=== PATIENT | male | born 2000 | race Caucasian/White ===

== ENCOUNTER 2024-01-01 01:38 | Emergency (ER) | payer OTHER, SELFPAY ==
--- NOTE | ~2024-01-01 | XR_ITS ---
Portable chest x-ray Comparison: None Clinical History: Chest pain Findings: Lungs are clear, without focal consolidation or pleural effusion. Cardiomediastinal silho uette is unremarkable. Bones and soft tissues are unremarkable. Impression: Normal chest. Reviewed, dictated and finalized at location M. Impression: Normal chest.
[2024-01-01 02:07] VITALS: BP 126/69; PULSE 72; RESP 15; TEMP 36.4; O2SAT 99
--- NOTE | 2024-01-01 02:50 | ECG_ITS ---
SEE SCANNED COPY FOR CONFIRMED REPORT MTDD
--- NOTE | 2024-01-01 03:24 | ED.GENADULT ---
HPI - General Adult General Chief complaint: Unspecified Stated complaint: palpitations, dilated pupils Time Seen by Provider: 01/01/24 02:31 History of Present Illness HPI narrative: 23-year-old male presenting with palpitations. Patient says he has been smoking a very strong strain of marijuana. After he smoked it he started to have palpitations and felt like his pupils were dilated. He has had poor reactions marijuana in the past but never like this. He then called his father was brought to emergency room for re-evaluation. At this time patient's symptoms at ribs resolved and he just feels tired. Related Data Allergies Allergy/AdvReac Type Severity Reaction Status Date / Time No Known Allergies Allergy Verified 01/01/24 02:11 [facility] Past Medical History Medical History Marijuana abuse Exam Narrative: APPEARANCE: Patient smells of marijuana, he is wearing a [place] hoodie Head: atraumatic. EYES: EOMI, conjunctival injection NOSE: Atraumatic NECK: Trachea midline RESPIRATORY: No increased rate of breathing CTAB CARDIOVASCULAR: RRR, ABDOMINAL: Non-distended MUSCULOSKELETAl: No obvious deformities NEURO: Alert. Moving 4/4 extremities SKIN:: Warm, dry. Normal color PSYCHIATRIC: anxious Course Vital Signs Vital signs: Vital Signs Temperature 97.6 F 01/01/24 02:07 Pulse Rate 72 01/01/24 02:07 Respiratory Rate 15 01/01/24 02:07 Blood Pressure 126/69 01/01/24 02:07 Pulse Oximetry 99 01/01/24 02:07 Oxygen Delivery Room Air 01/01/24 02:07 Temperature 97.6 F 01/01/24 02:07 Pulse Rate 72 01/01/24 02:07 Respiratory Rate 15 01/01/24 02:07 Blood Pressure 126/69 01/01/24 02:07 Pulse Oximetry 99 01/01/24 02:07 Oxygen Delivery Room Air 01/01/24 02:07 Medical Decision Making [facility] Narrative Medical decision making narrative: -Course: 23-year-old male presenting with palpitations and anxiety after a large dose of marijuana. Chest x-ray and EKG unremarkable. Patient instructed to stop using marijuana. Discharge with primary care follow-up return precautions. -DDX includes but is not limited to:. Substance use disorder, anxiety, cardiac dysrhythmia -Co-morbidities complicating care: daily marijuana use -Social determinants of health: works at [employer], uses large amount of marijuana -Independent interpretation of studies: Independent EKG interpretation: Rhythm [sinus], Rate []80, [place] -[normal], [place] -[normal], QRS [narrow], QTC [normal], T waves -[negative for concerning inversions], ST Segments - [Negative for concerning elevations] Final interpretations: [Normal Sinus Rhythm] -Shared decision making / Dispo: discharged. Vital Signs Vital Signs: Vital Signs Temperature 97.6 F 01/01/24 02:07 Pulse Rate 72 01/01/24 02:07 Respiratory Rate 15 01/01/24 02:07 Blood Pressure 126/69 01/01/24 02:07 Pulse Oximetry 99 01/01/24 02:07 Oxygen Delivery Room Air 01/01/24 02:07 Temperature 97.6 F 01/01/24 02:07 Pulse Rate 72 01/01/24 02:07 Respiratory Rate 15 01/01/24 02:07 Blood Pressure 126/69 01/01/24 02:07 Pulse Oximetry 99 01/01/24 02:07 Oxygen Delivery Room Air 01/01/24 02:07 Discharge Plan Discharge Clinical Impression: Marijuana abuse Patient Disposition: Home, Self-Care Condition: Stable Instructions: Antibiotic Form, Cannabis Use Disorder (ED) Additional Instructions: Please refrain from using strong doses of marijuana as it appears you tolerate it poorly. Please follow-up with your primary care physician. Return if you feel your condition is getting worse. Follow-up/Referrals: UNKNOWN,DOCTOR [Primary Care Provider] -
[2024-01-01 04:40] VITALS: BP 136/67; PULSE 68; RESP 16; O2SAT 98
== END 2024-01-01 04:41 | disposition home or self-care (01) ==
LOC: ANHED 03:37
PROVIDERS: Emergency Provider Emergency Medicine
DX: F12.10 Cannabis abuse, uncomplicated (principal)
CPT/HCPCS: 71045; 93005; 99283

== ENCOUNTER 2024-01-09 19:09 | Emergency (ER) | payer OTHER, SELFPAY ==
--- NOTE | ~2024-01-09 | XR_ITS ---
EXAMINATION: XR chest 1V portable DATE: 01/09/2024 20:38 INDICATION: Left-sided chest pain TECHNIQUE: AP view of the chest was obtained. COMPARISON: Chest radiograph dated 01/01/2024 FINDINGS: A few scattered tiny calcified nodules consistent with old granulomatous disease. No other airspace o pacities, pulmonary edema, pleural effusion or pneumothorax. The cardiomediastinal silhouette is norm al. Visualized bones and soft tissues are unremarkable. IMPRESSION: 1. No acute cardiopulmonary disease. Reviewed, dictated and finalized at location A.
[2024-01-09 19:12] VITALS: BP 148/91; PULSE 101; RESP 22; TEMP 36.6; O2SAT 99
--- NOTE | 2024-01-09 20:29 | ECG_ITS ---
SEE SCANNED COPY FOR CONFIRMED REPORT MTDD
--- NOTE | 2024-01-09 20:29 | ED.ANXIETY ---
HPI - Anxiety General Chief Complaint: Anxiety Stated Complaint: panic attack Time Seen by Provider: 01/09/24 20:05 Source: patient Mode of arrival: ambulatory Limitations: no limitations History of Present Illness HPI narrative: This is a 23-year-old male who presents to the ED with chief complaint of panic attack symptoms onset around 1600 today. Patient reports that he was fine she at work today we started having palpitations. Reports that the palpitations reported with intermittent chest pain, shortness of breath and bilateral hand tingling. States that progressed to facial tingling. He states that symptoms have been resolved for a couple of hours now. Reports that lasted around 30 minutes. States he had something similar few weeks ago that lasted around 30 minutes. Admits to marijuana use but has not smoked in the last couple of days. Denies fevers, chills, leg swelling, history of blood clot, recent hospitalization or any further symptoms. Related Data Allergies Allergy/AdvReac Type Severity Reaction Status Date / Time No Known Allergies Allergy Verified 01/09/24 19:20 Review of Systems Review of Systems: All systems as dictated in HPI [facility] Past Medical History Medical History Marijuana abuse Exam Narrative: GENERAL: Well-appearing, well-nourished, and in no acute distress. HEAD: Normocephalic, atraumatic. EYES: PERRLA and EOMI. ENT: Nares clear, no rhinorrhea or epistaxis. Mucous membranes moist. Oropharynx without tonsillar hypertrophy exudate or other lesions. NECK: Supple. No adenopathy or masses. CHEST: No respiratory distress. Clear to auscultation. No wheezes rales or rhonchi HEART: Regular rate and rhythm. No murmur heard. Normal peripheral pulses. ABDOMEN: Soft, nontender, nondistended, normal active bowel sounds. MSK: Normal range of motion. No edema. SKIN: Warm, dry, no rash. NEURO: Alert and oriented x3. No focal deficits. PSYCH: Normal mood and affect. No SI or HI. Course Vital Signs Vital signs: Vital Signs Temperature 97.9 F 01/09/24 19:12 Pulse Rate 101 H 01/09/24 19:12 Respiratory Rate 22 H 01/09/24 19:12 Blood Pressure 148/91 H 01/09/24 19:12 Pulse Oximetry 99 05/21/24 19:12 Oxygen Delivery Room Air 01/09/24 19:12 Temperature 97.9 F 01/09/24 19:12 Pulse Rate 90 01/09/24 22:19 Respiratory Rate 19 01/09/24 22:19 Blood Pressure 135/88 01/09/24 22:19 Pulse Oximetry 97 01/09/24 22:19 Oxygen Delivery Room Air 01/09/24 19:12 MDM - Anxiety MDM Narrative Medical decision making narrative: This is a 23-year-old male who presents to the ED with chief complaint of panic attack symptoms that occurred prior to arrival and resolved prior to evaluation. Vitals show mildly elevated blood pressure and a mildly elevated heart rate, consistent with anxiety. On re-evaluation he is feeling completely asymptomatic. He EKG shows normal sinus rhythm. Chest x-ray shows no acute findings. Symptoms are consistent with panic attack symptoms. Rx for hydroxyzine p.r.n. Pt will be discharged in stable condition. Return precautions given and supportive measures discussed. Pt is understanding and agreeable with plan for discharge and follow-up with PCP. ECG Data EKG #1: ECG completion date: 01/09/24 ECG completion time: 22:01 Prior ECG tracings: not available for review Interpretation: Sinus rhythm with sinus arrhythmia Rate 74 Normal QRS Normal QT No acute ischemic findings Discharge Plan Discharge Clinical Impression: Acute anxiety Patient Disposition: Home, Self-Care Condition: Stable Instructions: Antibiotic Form, Anxiety (ED) Additional Instructions: Your exam and imaging today are reassuring overall. Please follow-up with your regular doctor. Take hydroxyzine as needed for anxiety. If you have any new or worsening symptoms please retu
[2024-01-09 22:19] VITALS: BP 135/88; PULSE 90; RESP 19; O2SAT 97
== END 2024-01-09 22:20 | disposition home or self-care (01) ==
PROVIDERS: Emergency Provider Physician Assistant
DX: F41.9 Anxiety disorder, unspecified (principal)
CPT/HCPCS: 71045; 93005; 99283

== ENCOUNTER 2025-01-01 18:55 | Emergency (ER) | payer OTHER, SELFPAY ==
--- NOTE | ~2025-01-01 | US_ITS ---
TESTICULAR ULTRASOUND (Doppler ultrasound interrogation techniques used as needed for this exam.) Ordering provider: Vishnu Murphy MD History: . testicular pain . Comparison: None. FINDINGS: TESTICLES: Normal in size. The right measures 4.5x 2.6x 3.4 cm and the left measures 4.4x 2.6x 3.2 cm . Normal echogenicity bilaterally without mass lesion. Normal Doppler flow bilaterally. EPIDIDYMIDES: Normal in size. . Normal echogenicity bilaterally. Both demonstrate normal Doppler flow . HYDROCELE: None. VARICOCELE: None. OTHER ABNORMALITY: None seen. IMPRESSION: Normal testicular ultrasound. Reviewed, dictated and finalized at location A.
--- OUTSIDE RECORDS SUMMARY | 2025-01-01 18:58 | XMS_ITS | Encounter Summary ---
Author Organization [facility] Address [address] [place] [address] Care Team Providers Care Freight Shipping Agent Name Role Phone Ramiro Sam MD Primary Care Provider [phone] Tyra Ordoñez Primary Care Provider [phone] Carlitos Walker MD Unavailable [phone] Encounter Details Date Type Department Care Team (Latest Contact Info) Description 06/26/2018 Abstract [facility] , Nicole Coto MD Social History Tobacco Use Types Packs/Day Years Used Date Smoking Tobacco: Never Assessed Sex and Gender Information Value Date Recorded Sex Assigned at Not on file Legal Sex Male 7:51 PM CDT Gender Identity Not on file Sexual Orientation Not on file documented as of this encounter Plan of Treatment Not on file documented as of this encounter Visit Diagnoses Not on filedocumented in this encounter Additional Health Concerns Infection Onset Date Last Indicated Resolved Time COVID-19 Rule Out 06/24/2022 06/24/2022 06/24/2022 1:56 PM CDT documented as of this encounter Care Teams Freight Shipping Agent Relationship Specialty Start Date End Date Ramiro Sam MD [address] [address] PCP - General PEDIATRICS 04/01/19 03/08/21 Tyra Ordoñez FNP [address] [place] [id number] PCP - General Nurse Practitioner Family 03/09/21 Carlitos Walker MD [address] [place] [address] Physician NEUROMUSCULOSKELETAL MEDICINE 12/25/23 documented as of this encounter
--- OUTSIDE RECORDS SUMMARY | 2025-01-01 18:58 | XMS_ITS | Clinical Summary ---
Author Organization [facility] Address [address] [place] [address] Care Team Providers Care Trip Rider Name Role Phone Tyra Ordoñez DRAKE Primary Care Provider [phone] Carlitos Walker MD Unavailable [phone] Allergies No known active allergies Medications hydrOXYzine (ATARAX) 25 MG tabletIndicatio ns:Moderate episode of recurrent major depressive disorder (CMS/HCC),Gener alized anxiety disorder with panic attacks Take 1 tablet (25 mg total) by mouth 3 (three) times daily as needed. FOR ANXIETY 90 tablet 1 01/31/2024 Active busPIRone (BUSPAR) 10 MG tabletIndicatio ns:Generalized anxiety disorder with panic attacks Take 1.5 tablets (15 mg total) by mouth 3 (three) times daily as needed. 90 tablet 1 01/31/2024 Active FLUoxetine (PROZAC) 10 MG tabletIndicatio ns:Generalized anxiety disorder with panic attacks,Moderat e episode of recurrent major depressive disorder (CMS/HCC) Take 2 tablets (20 mg total) by mouth daily. 180 tablet 3 02/02/2024 Active Active Problems Problem Noted Date Diagnosed Date Hypokalemia 02/02/2024 Anemia, unspecified type 02/02/2024 Vitamin D deficiency, unspecified 02/02/2024 Moderate episode of recurrent major depressive d isorder 01/12/2024 Generalized anxiety disorder with panic attacks 01/12/2024 Seizure (CMS/HCC [facility]/HCC) 10/31/2023 Positive depression screening 10/31/2023 Influenza A 06/24/2022 Chronic right shoulder pain 03/09/2021 Body mass index (BMI) 19.9 or less, adult 2020 Excessive anger 03/30/2018 Fracture of humerus, proximal 09/25/2014 Resolved Problems Problem Noted Date Diagnosed Date Resolved Date Encounter for medical examin ation to establish care 03/09/2021 03/15/2021 Immunizations Immunization Administration Dates Next Due Dtap (Generic) 03/23/2006, 2,03/10/2001,01/18,2000 Fluzone 6 Months+ Quad (0.5 mL Prefilled Syringe) 10/31/2023,05/31/2022,04/29/2020 HPV GARDASIL 9-VALENT 04/05/2016,03/16/2015 Hepatitis A Vaccine - 2 Dose 12/18/2008,03/23/20 06 Hepatitis B Pediatric 06/15/2001,2000,08/22 Hib Vaccine, Prp-Omp 12/31/2001,03/14/20,01/18/2001,11/08 Influenza (Generic) 05/29/2017 Influenza Adult (Generic) 05/11/2018 MMR (Generic) 03/23/2006,2001 Meningcoccal Group B (Manuel ba)(aka Meningitis) 01/02/2023 Meningococcal B 03/28/2018 Meningococcal Vac A,C,Y,W-135 Sc 03/20/2017,02/18 PFIZER COVID-19 (ORIGINAL FO RMULATION, PURPLE CAP) mRNA, LNP-S, PF, 30 MCG/0.3 ML DOSE 07/28/2021,01/08/2021,12/05/2020 Pneumococcal (Prevnar 7) 03/14/2001,01/18/2001,0 2000 Polio Ipv (Generic) 03/23/2006, 1,01/18/2001,11/08 Tdap (Adacel) 05/31/2022 Tdap (Generic) 03/06/2012 Varicella Vaccine 12/18/2008,11/09/2001 Family History Medical History Relation Comments Diabetes Brother Heart Disease Mother Relation Status Comments Brother Mother Social History Tobacco Use Types Packs/Day Years Used Date Smoking Tobacco: Never Passive Smoke Exposure: Never Smokeless Tobacco: Never Tobacco Cessation:Counseling Given: Not Answered Alcohol Use Standard Drinks/Week Comments Never 0 (1 standard drink = 0.6 oz pur e alcohol) rare PHQ-2 Answer Date Recorded Patient Health Questionnaire-2 Score 2 02/02/2024 Sex and Gender Information Value Date Recorded Sex Assigned at Not on file Legal Sex Male 7:51 PM CDT Gender Identity Not on file Sexual Orientation Not on file Last Filed Vital Signs Vital Sign Reading Time Taken Comments Blood Pressure 138/72 02/02/2024 8:29 AM CDT Pulse 71 02/02/2024 8:29 AM CDT Temperature 36.8 C (98.2 F) 02/02/2024 8:29 AM CDT Respiratory Rate 16 02/02/2024 8:29 AM CDT Oxygen Saturation 98% 02/02/2024 8:29 AM CDT Inhaled Oxygen Concentration - - Weight 74.4 kg (164 lb) 02/02/2024 8:29 AM CDT Height 184.2 cm (6' 0.5 ) 02/02/2024 8:29 AM CDT Body Mass Index 21.94 02/02/2024 8:29 AM CDT Plan of Treatment Health Maintenance Due Date Last Done Comments Hepatitis C 2018 Meningococcal B Vaccine (2 of 2 - Trumenba SCDM 2-dose series) 07/05/2023 01/02/2023 Annual Physical 01/03/2024 01/02/2023, 05/21, 04/05/2019 COVID-19 Vaccine ( season) 2024 07/28/2021, 01/08/2021, 12/05/2020 PHQ-2 (Physician [place]) 08/21/2024 02/02/2024 DTaP, Tdap and Td Vaccines (8 - Td or Tdap) 05/31/2032 05/31/2022, 03/06/2012, 03/23/2006, Additional history exists Pneumococcal Vaccine: Pediatrics (0 to 5 Years) and At-Risk Patients (6 to 49 Years) Aged Out 03/14/2001, 01/18/2001, 2000 No longer eligible based on patient's age to complete this topic Hepatitis B Vaccines Completed 06/15/2001, 2000, 2000 HPV Vaccines Completed 04/05/2016, 03/16/2015 Meningococcal Vaccine Aged Out 03/28/2018 , 03/20/2017, 03/06/2012 No longer eligible based on patient's age to complete this topic RSV Immunizations Under 20 Months Aged Out No longer eligible based on patient's age to complete this topic Insurance [facility] Care Teams Trip Rider Relationship Specialty Start Date End Date Tyra Ordoñez FNP [address] [place] [id number] PCP - General Nurse Practitioner Family 03/09/21 Carlitos Walker MD [address] [place] [address] Physician NEUROMUSCULOSKELETAL MEDICINE 12/25/23
--- OUTSIDE RECORDS SUMMARY | 2025-01-01 18:58 | XMS_ITS | Clinical Summary ---
Author Organization [facility] Address [address] [facility] [place] [address] Care Team Providers Care Nurse Specialist Name Role Phone Ramiro Sam MD Primary Care Provider Unavailab le Source Comments [facility],non-owned Affiliates and Associated Physician Practices is amultiple site organization consisting of ambulatory clinics and hospital sitesin [place], [place], [place] and [place]. This disclosure is being madepursuant to the Care Everywhere program and may not contain all information available regarding this patient. Last updated 18.naaptol [facility] Allergies No known active allergies Medications * Be aware that medications may not be up to date on this document. Alwaysverify current medications with the patient. ibuprofen (MOTRIN) 400 MG tablet Take 400 mg by mouth every 6 hours as needed for Pain. 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 Gender Identity Not on file Sexual Orientation Not on file Last Filed Vital Signs Vital Sign Reading Time Taken Comments Blood Pressure - - Pulse - - Temperature - - Respiratory Rate - - Oxygen Saturation - - Inhaled Oxygen Concentration - - Weight 52.7 kg (116 lb 1.3 oz) 10/23/2014 8:54 A M DRAFTING INSTRUCTOR Height 167 cm (5' 5.75 ) 10/23/2014 8:54 AM DRAFTING INSTRUCTOR Body Mass Index 18.88 10/23/2014 8:54 AM DRAFTING INSTRUCTOR Plan of Treatment Health Maintenance Due Date Last Done Comments HIV SCREENING 2015 HPV VACCINE (1 - Male 3-dose series) 2015 HEPATITIS C SCREENING 09/09/2018 DTAP/TDAP/TD VACCINES (1 - Tdap) 2019 HEPATITIS B VACCINE (1 of 3 - 19+ 3-dose series) 2019 COVID-19 VACCINE (1 - 2023-2 5 season) 2024 DEPRESSION SCREENING 08/21/2024 INFLUENZA VACCINE (Season Ended) 2025 ZOSTER VACCINE (1 of 2) 2050 HIB VACCINE Aged Out No longer eligi ble based on patient's age to complete this topic MENINGOCOCCAL (Group B) VACC INE SHARED DECISION-MAKING Aged Out No longer eligibl e based on patient's age to complete this topic MENINGOCOCCAL GROUPS A/C/Y/W VACCINE Aged Out No longer eligible b ased on patient's age to complete this topic PNEUMOCOCCAL VACCINE Aged Out No long er eligible based on patient's age to complete this topic Insurance [facility] Care Teams Nurse Specialist Relationship Specialty Start Date End Date Ramiro Sam MD PCP - General Pediatrics 09/25/14
[2025-01-01 19:01] VITALS: BP 147/90; PULSE 73; RESP 17; TEMP 36.7; O2SAT 100
--- NOTE | 2025-01-01 19:14 | ED.MALEGU ---
HPI - Male Genitourinary General Chief complaint: Urogenital-Male Stated complaint: testicular pain Time Seen by Provider: 01/01/25 18:58 History of Present Illness [facility] Narrative: 24-year-old otherwise healthy male presenting to the emergency room with left-sided testicular pain ongoing since yesterday. He states he noticed the discomfort is left groin yesterday after he was running around work but today he states that pain is slightly worse. Did not take anything for pain prior to arrival. Denies any dysuria, hematuria, blood in the urine or sperm. Denies any history of STIs or STDs, no sexual activity. Denies any concerns for sexually transmitted infections at this time. No trauma or injury. No testicular swelling. He thinks he may have felt a mass on his left testicle yesterday when he was trying to examine himself. States the pain is better with scrotal support and lifting it against gravity. Related Data Allergies Allergy/AdvReac Type Severity Reaction Status Date / Time No Known Allergies Allergy Verified 01/01/25 18:56 Review of Systems Review of Systems: As reviewed above in HPI [facility] Past Medical History Medical History Marijuana abuse Exam Narrative: GENERAL: [Well-appearing, well-nourished, and in no acute distress.] HEAD: [Normocephalic, atraumatic.] EYES: [PERRLA and EOMI.] ENT: Nares clear, no rhinorrhea or epistaxis. Mucous membranes moist. NECK: Supple. CHEST: [Clear to auscultation. No respiratory distress.] HEART: [Regular rate and rhythm]. No murmur heard. [Normal peripheral pulses.] ABDOMEN: [Soft, nondistended], [nontender], [No rigidity or guarding] : Testicular examination shows no overlying skin changes, erythema or tenderness. Mild tenderness to palpation over the epididymis of the left side, positive pr and sign, no signs of testicular trauma or injury. No states that he was swelling, no scrotal swelling, no scrotal edema. EXTREMITIES: Normal range of motion. [No edema.] SKIN: Warm, dry, no rash. NEURO: [No focal deficits]. Alert and oriented [x3.] PSYCH: [Normal mood and affect.] Course Vital Signs Vital signs: Vital Signs Temperature 36.7 C 01/01/25 19:01 Pulse Rate 73 01/01/25 19:01 Respiratory Rate 17 01/01/25 19:01 Blood Pressure 147/90 H 01/01/25 19:01 Pulse Oximetry 100 01/01/25 19:01 Oxygen Delivery Room Air 01/01/25 19:01 Temperature 36.7 C 01/01/25 19:01 Pulse Rate 73 01/01/25 19:01 Respiratory Rate 17 01/01/25 19:01 Blood Pressure 147/90 H 01/01/25 19:01 Pulse Oximetry 100 01/01/25 19:01 Oxygen Delivery Room Air 01/01/25 19:01 MDM - Male Genitourinary MDM Narrative Medical decision making narrative: 24-year-old otherwise healthy male presenting to the emergency room left-sided testicular pain for 2 days. States he has not tried anything for analgesia. Did not note any swelling or overlying skin changes but states he felt a lump on his left testicle yesterday. Symptoms onset after running around and doing work at his job site but denies any trauma or injury. He has an unremarkable testicular examination with no appreciable masses or swelling but he does have some tenderness over the left epididymis. Denies any history of STIs, no recent sexual contacts. No concerns for STDs according to the patient. He has normal vital signs. Denies any dysuria, urethritis symptoms or any urinary complaints at this time. Considerations presently for epididymitis, hydrocele, varicocele, hernia, low suspicion testicular torsion given his unremarkable examination in low pain. Patient was provided Tylenol and Toradol and a testicular ultrasound was ordered for evaluation as well as urinalysis. Testicular and scrotal ultrasonography was normal without any findings. Patient's urinalysis is unremarkable. Patient likely has some strain in his groin that caused his symptomatology but no urgent or emergent concerns at this time. Patient encouraged to take Tylenol and ibuprofen for pain control and were scrotal support until resolved. Given return precautions and safely discharged. Medical Records Attestation: I reviewed the patient's medical records. Lab Data Attestation: I reviewed the patient's lab results. Labs: Lab Results 01/01/25 Range/Units 20:27 Urine Color Yellow (Yellow) Urine Appearance Clear (Clear) Urine pH 5.5 (5.0-9.0) Ur Specific [place] 1.012 (1.001-1.035) Urine Protein Negative (Negative) mg/dL Urine Glucose (UA) Negative (Negative) mg/dL Urine Ketones Negative (Negative) mg/dL Ur Blood (Man) Negative (Negative) Urine Nitrate Negative (Negative) Urine Bilirubin Negative (Negative) Urine Urobilinogen 0.2 (<2.0) mg/dL Leukocyte Esterase Rfl Negative (Negative) ANNMARIE/UL Imaging Data Attestation: I personally reviewed and interpreted this imaging study as follows: My impression: Impressions Scrotum Ultrasound 01/01/25 19:43 IMPRESSION: Normal testicular ultrasound. Discharge Plan Discharge Clinical Impression: Left testicular pain, Pulled muscle Patient Disposition: Home Condition: Stable Instructions: Antibiotic Form, Testicle Pain (ED) Additional Instructions: Your ultrasound is normal as well as urinalysis without any signs of infection. No cysts, masses or infection. No signs of testicular torsion. Unremarkable ultrasonography imaging. Were scrotal supporting underwear and take Tylenol and ibuprofen for any pain. Return with any emergent concerns otherwise follow-up with regular doctor as needed. Patient Language: Maori Prescriptions: No Action hydroxyzine HCl 25 mg tablet 25 mg PO TID PRN (Reason: anxiety) Qty: 30 0RF Follow-up/Referrals: PHYSICIAN NOT ON STAFF,NONSTAFF [Non-Staff] - Time of Disposition: 21:04
[2025-01-01] MEDS: KETOROLAC 10 MG TABLET PO (19:20)
[2025-01-01] MEDS: ACETAMINOPHEN 500 MG TABLET 1000 MG PO (19:20)
--- OUTSIDE RECORDS SUMMARY | 2025-01-01 19:22 | XMS_ITS | Clinical Summary ---
Author Organization [facility] Address [address] [place] [address] Care Team Providers Care Long Wall Mining Machine Helper Name Role Phone Tyra Ordoñez DRAKE Primary Care Provider [phone] Carlitos Walker MD Unavailable [phone] Allergies No known active allergies Medications hydrOXYzine [...] disorder with panic attacks 01/12/2024 Seizure (CMS/HCC [facility]/HCC) 10/31/2023 Positive depression screening 10/31/2023 Influenza A [...] season) 2024 07/28/2021, 01/08/2021, 12/05/2020 PHQ-2 (Physician [place]) 08/21/2024 02/02/2024 DTaP, Tdap and Td Vaccines [...] patient's age to complete this topic Insurance [facility] Care Teams Long Wall Mining Machine Helper Relationship Specialty Start Date End Date Tyra Ordoñez FNP [address] [place] [id number] PCP - General Nurse Practitioner Family 03/09/21 Carlitos Walker MD [address] [place] [id number] Physician NEUROMUSCULOSKELETAL MEDICINE 12/25/23
--- OUTSIDE RECORDS SUMMARY | 2025-01-01 19:22 | XMS_ITS | Clinical Summary ---
Author Organization [facility] Address [address] [place] [address] Care Team Providers Care Human Resources Specialist Name Role Phone Ramiro Sam MD Primary Care Provider Unavailab le Source Comments [facility],non-owned Affiliates and Associated Physician Practices is amultiple site organization consisting of ambulatory clinics and hospital sitesin [place], [place], [place] and [place]. This disclosure is being madepursuant to the Care Everywhere program and may not contain all information available regarding this patient. 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 Gender Identity Not on file Sexual Orientation Not on file Last Filed Vital Signs Vital Sign Reading Time Taken Comments Blood Pressure - - Pulse - - Temperature - - Respiratory Rate - - Oxygen Saturation - - Inhaled Oxygen Concentration - - Weight 52.7 kg (116 lb 1.3 oz) 10/23/2014 8:54 A M HARDWARE MANAGER Height 167 cm (5' 5.75 ) 10/23/2014 8:54 AM HARDWARE MANAGER Body Mass Index 18.88 10/23/2014 8:54 AM HARDWARE MANAGER Plan of Treatment Health Maintenance Due Date [...] patient's age to complete this topic Insurance [facility] Care Teams Human Resources Specialist Relationship Specialty Start Date End Date Ramiro Sam MD PCP - General Pediatrics 09/25/14
--- OUTSIDE RECORDS SUMMARY | 2025-01-01 19:22 | XMS_ITS | Encounter Summary ---
Author Organization [facility] Address [address] [place] [id number] Care Team Providers Care Life Enrichment Specialist Name Role Phone Ramiro Sam MD Primary Care Provider [phone] Tyra Ordoñez Primary Care Provider [phone] Carlitos Walker MD Unavailable [phone] Encounter Details Date Type Department Care Team (Latest Contact Info) Description 06/26/2018 Abstract [facility] , Nicole Coto MD Social [...] documented as of this encounter Care Teams Life Enrichment Specialist Relationship Specialty Start Date End Date Ramiro Sam MD [address] [address] PCP - General PEDIATRICS 04/01/19 03/08/21 Tyra Ordoñez FNP [address] [place] [id number] PCP - General Nurse Practitioner Family 03/09/21 Carlitos Walker MD [address] [place] [address] Physician NEUROMUSCULOSKELETAL MEDICINE 12/25/23 documented as of this encounter
[2025-01-01 20:33] LABS: Add Urine Microscopic? NO; Appearance Urine Clear (Clear); Bilirubin Urine Negative (Negative); Blood Urine Negative (Negative); Color Urine Yellow (Yellow); Glucose Urine UA Negative (Negative); Ketones Urine Negative (Negative); Leukocyte Esterase Ur Negative LEU/UL (Negative); Nitrate Urine Negative (Negative); Protein Urine Negative (Negative); Specific Grav Ur 1.012 (1.001-1.035); Urobilinogen Urine 0.2 mg/dL (<2.0); pH Urine 5.5 (5.0-9.0)
== END 2025-01-01 21:24 | disposition home or self-care (01) ==
PROVIDERS: Emergency Provider Student in an Organized Health Care Education/Training Program
DX: N50.812 Left testicular pain (principal); S39.011A Strain of muscle, fascia and tendon of abdomen, initial encounter; X58.XXXA Exposure to other specified factors, initial encounter
CPT/HCPCS: 76870; 81003; 93976; 99284; A9270

== ENCOUNTER 2025-01-16 15:12 | Emergency (ER) | payer OTHER, SELFPAY ==
[2025-01-16 15:13] VITALS: BP 146/86; PULSE 88; RESP 16; TEMP 36.9; O2SAT 99
--- OUTSIDE RECORDS SUMMARY | 2025-01-16 15:13 | XMS_ITS | Clinical Summary ---
Author Organization [email or web address] Address [address] [place] [address] Care Team Providers Care Program Evaluation Consultant Name Role Phone Ramiro Sam MD Primary Care Provider Unavailab le Source Comments [email or web address],non-owned Affiliates and Associated Physician Practices is amultiple site organization consisting of ambulatory clinics and hospital sitesin [place], [place], [place] and [place]. This disclosure is being madepursuant to the Care Everywhere program and may not contain all information available regarding this patient. 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 Gender Identity Not on file Sexual Orientation Not on file Last Filed Vital Signs Vital Sign Reading Time Taken Comments Blood Pressure - - Pulse - - Temperature - - Respiratory Rate - - Oxygen Saturation - - Inhaled Oxygen Concentration - - Weight 52.7 kg (116 lb 1.3 oz) 10/23/2014 8:54 A M TOURIST ESCORT Height 167 cm (5' 5.75) 10/23/2014 8:54 AM TOURIST ESCORT Body Mass Index 18.88 10/23/2014 8:54 AM TOURIST ESCORT Plan of Treatment Health Maintenance Due Date [...] patient's age to complete this topic Insurance [facility] Care Teams Program Evaluation Consultant Relationship Specialty Start Date End Date Ramiro Sam MD PCP - General Pediatrics 09/25/14
[2025-01-16 15:39] LABS: Basophils Absolute Auto 0.1 K/mm3 (0.0-0.1); Basophils Percent Auto 0.7 % (0.2-1.2); Eosinophils Absolute Auto 0.6 K/mm3 (0-0.3); Eosinophils Percent Auto 6.5 % (0-4.4); Hematocrit 46.4 % (42.0-52.0); Hemoglobin 15.8 g/dL (14.0-18.0); Immature Granulocyte Absolute 0.03 K/mm3 (0.00-0.031); Immature Granulocyte Percent A 0.3 % (0-0.5); Lymphocytes Absolute Auto 2.39 K/mm3 (0.9-3.2); Lymphocytes Percent Auto 24.2 % (18.3-44.2); Mean Corpuscular HGB Conc 34.1 g/dl (32-36); Mean Corpuscular Hemoglobin 28.3 pg (26-34); Mean Corpuscular Volume 83.2 fl (80-100); Mean Platelet Volume 9.8 fl (7.4-10.4); Monocytes Absolute Auto 0.8 K/mm3 (0.1-0.6); Monocytes Percent Auto 7.9 % (2.6-8.5); Neutrophils Percent Auto 60.4 % (45.5-73.1); Platelet Count Result 374 k/mm3 (150-375); Red Blood Count 5.58 M/mm3 (4.6-6.20); Red Cell Distribution Width 13.1 % (11.5-14.5); White Blood Count 9.9 K/mm3 (4.5-10.0)
[2025-01-16 15:45] LABS: Add Urine Microscopic? YES; Appearance Urine Clear (Clear); Bacteria Urine None Seen /hpf; Bilirubin Urine Negative (Negative); Blood Urine Negative (Negative); Color Urine Yellow (Yellow); Glucose Urine UA Negative (Negative); Ketones Urine Trace mg/dL (Negative); Leukocyte Esterase Ur Negative LEU/UL (Negative); Nitrate Urine Negative (Negative); Non Pathogenic Casts 0-2; Protein Urine Trace mg/dL (Negative); RBC Urine 0-2 /hpf (0-2); Squamous Epithelial Cell Urine None Seen /hpf (Few); WBC Urine 0-5 /hpf (0-3)
[2025-01-16 15:47] LABS: Acetaminophen < 10 ug/mL (10-30); Ethanol < 10 mg/dL (<10); Salicylate < 1.0 mg/dL (2-20)
[2025-01-16 15:58] LABS: Amphetamine Screen Urine Negative (Negative); Barbiturate Screen Urine Negative (Negative); Benzodiazepines Screen Urine Negative (Negative); Cannabinoid Screen Urine Positive (Negative); Cocaine Screen Urine Negative (Negative); Methadone Screen Urine Negative (Negative); Opiate Screen Urine Negative (Negative); Phencyclidine Screen Urine Negative (Negative)
[2025-01-16 15:59] LABS: Alanine Aminotransferase 36 U/L (6-50); Albumin Level 5.5 g/dL (3.5-5.1); Alkaline Phosphatase 83 U/L (38-126); Anion Gap 13 mmol/L (4-12); Aspartate Amino Transferase 38 U/L (17-59); Bilirubin,Total 2.3 mg/dL (0.2-1.3); Blood Urea Nitrogen 16 mg/dL (9-20); Calcium 10.2 mg/dL (8.4-10.2); Carbon Dioxide 25 mmol/L (22-30); Chloride 102 mmol/L (98-107); Estimated CRCL calculation 132 ml/min; Estimated Glomerular Filt Rate > 60; Glucose 121 mg/dL (65-110); Potassium 3.7 mmol/L (3.4-5.0); Sodium 140 mmol/L (137-145)
[2025-01-16 16:14] LABS: Influenza A QL RT-PCR Negative (Negative); Influenza B QL RT-PCR Negative (Negative); RSV RNA, RT-PCR Negative (Negative); SARS-CoV-2 RNA PCR Negative (Negative)
[2025-01-16 16:38] VITALS: BP 115/80; PULSE 93; RESP 15; O2SAT 100
--- NOTE | 2025-01-16 18:12 | ED_ITS ---
HPI - Psych General Chief Complaint: Psychiatric Symptoms Stated Complaint: SI Time Seen by Provider: 01/16/25 16:59 Source: patient Mode of arrival: ambulatory Limitations: no limitations History of Present Illness HPI Narrative: Patient is a 24-year-old male who presents the ED with report of depression/suicidal ideation. Patient reports over the last several days, he has been feeling increasingly low/depressed. He has had decreased motivation, has not been going to work, has since sleeping excessively, limited p.o. intake. States he went almost 3 days without eating or drinking. States he does not have interest in typical hobbies. Has had thoughts of not wanting to be here in this world anymore. Denies actually wanting to harm himself. Denies any attempt at suicide. Denies HI. Patient does not have any confirmed diagnosis of depression or anxiety, is not on any medication for this, does not currently see a psychiatrist or counselor. Related Data Allergies Allergy/AdvReac Type Severity Reaction Status Date / Time No Known Allergies Allergy Verified 01/16/25 15:22 Review of Systems 2 Review of Systems: All systems reviewed & are unremarkable except as noted in HPI. All systems reviewed & are unremarkable except as noted in HPI and below PMFSH Past Medical History Medical History Marijuana abuse Social History Social History Substance use type: does not use Exam 2 Narrative: GENERAL: Well appearing, well-nourished, non-toxic, in no acute distress. HEAD: Normocephalic, atraumatic. RESPIRATORY: Airway patent, respirations nonlabored. CARDIOVASCULAR: Regular rate and rhythm MUSCULOSKELETAL: Moves all extremities. No gross deformities. SKIN: Warm, dry, normal color. NEURO: A&O X3. Speech clear. PSYCHIATRIC: Somewhat flat affect. Normal interaction. Course Vital Signs Vital signs: Vital Signs Temperature 98.4 F 01/16/25 15:13 Pulse Rate 88 01/16/25 15:13 Respiratory Rate 16 01/16/25 15:13 Blood Pressure 146/86 H 01/16/25 15:13 Pulse Oximetry 99 01/16/25 15:13 Temperature 98.4 F 01/16/25 15:13 Pulse Rate 93 01/16/25 16:38 Respiratory Rate 15 01/16/25 16:38 Blood Pressure 115/80 01/16/25 16:38 Pulse Oximetry 100 01/16/25 16:38 MDM - Psych MDM Narrative Medical decision making narrative: Patient presented to ED with several day history of depression, passive suicidal ideation without plan, apathy, decreased care of himself. Vital signs are stable. Patient in no acute distress. ED psych workup was initiated and unremarkable. Medically cleared to undergo psychiatric evaluation by crisis team. Crisis evaluated patient and determined him to meet criteria for safety planning and discharge home. I do agree with this disposition. Patient is comfortable with this. He does not feel inpatient hospitalization will benefit him at this time. Crisis team will have close follow-up with patient and coordinate a tele- psych visit and phone f/u within the next couple of days. Patient was also provided with emergency 24/ crisis contacts. Patient has good support system at home and with his friends. Patient given very strict return precautions. Discharged in stable condition. Medical Records Attestation: I reviewed the patient's medical records. Lab Data Attestation: I reviewed the patient's lab results. 01/16/25 15:25 01/16/25 15:25 Labs: Lab Results 01/16/25 01/16/25 Range/Units 15:25 15:36 WBC 9.9 (4.5-10.0) K/mm3 RBC 5.58 (4.6-6.20) M/mm3 Hgb 15.8 (14.0-18.0) g/dL Hct 46.4 (42.0-52.0) % MCV 83.2 (80-100) fl MCH 28.3 (26-34) pg MCHC 34.1 (32-36) g/dl RDW 13.1 (11.5-14.5) % Plt Count 374 (150-375) k/mm3 MPV 9.8 (7.4-10.4) fl Immature Gran % (Auto) 0.3 (0-0.5) % Neut % (Auto) 60.4 (45.5-73.1) % Lymph % (Auto) 24.2 (18.3-44.2) % Sully % (Auto) 7.9 (2.6-8.5) % Eos % (Auto) 6.5 H (0-4.4) % Baso % (Auto) 0.7 (0.2-1.2) % Lymph # (Auto) 2.39 (0.9-3.2) K/mm3 Sully # (Auto) 0.8 H (0.1-0.6) K/mm3 Eos # (Auto) 0.6 H (0-0.3) K/mm3 Baso # (Auto) 0.1 (0.0-0.1) K/mm3 Abs Immat Gran (auto) 0.03 (0.00-0.031) K/mm3 Absolute Neuts (auto) 6.0 (1.3-6.7) K/mm3 Absolute Nucleated RBC 0.000 (0.0-0.012) K/mm3 Nucleated RBC % 0.0 (0.0-0.2) % Sodium 140 (137-145) mmol/L Potassium 3.7 (3.4-5.0) mmol/L Chloride 102 (98-107) mmol/L Carbon Dioxide 25 (22-30) mmol/L Anion Gap 13 H (4-12) mmol/L BUN 16 (9-20) mg/dL Creatinine 0.84 (0.7-1.3) mg/dL Estim Creat Clear Calc 132 ml/min Estimated GFR > 60 (59 - ) Glucose 121 H (65-110) mg/dL Calcium 10.2 (8.4-10.2) mg/dL Total Bilirubin 2.3 H (0.2-1.3) mg/dL AST 38 (17-59) U/L ALT 36 (6-50) U/L Alkaline Phosphatase 83 (38-126) U/L Total Protein 9.0 H (6.3-8.2) g/dL Albumin 5.5 H (3.5-5.1) g/dL TSH 2.780 (0.465-4.680) uIU/mL Urine Color Yellow (Yellow) Urine Appearance Clear (Clear) Urine pH 6.0 (5.0-9.0) Ur Specific Melvin 1.020 (1.001-1.035) Urine Protein Trace (Negative) mg/dL Urine Glucose (UA) Negative (Negative) mg/dL Urine Ketones Trace H (Negative) mg/dL Ur Blood (Man) Negative (Negative) Urine Nitrate Negative (Negative) Urine Bilirubin Negative (Negative) Urine Urobilinogen 1.0 (<2.0) mg/dL Leukocyte Esterase Rfl Negative (Negative) ANNMARIE/UL Urine RBC 0-2 (0-2) /hpf Urine WBC 0-5 (0-3) /hpf Ur Squamous Epith Cells None seen (Few) /hpf Urine Bacteria None seen /hpf Urine Casts 0-2 Salicylates < 1.0 L (2-20) mg/dL Urine Opiates Screen Negative (Negative) Urine Methadone Screen Negative (Negative) Acetaminophen < 10 L (10-30) ug/mL Ur Barbiturates Screen Negative (Negative) Ur Phencyclidine Scrn Negative (Negative) Ur Amphetamine Screen Negative (Negative) U Benzodiazepines Scrn Negative (Negative) Urine Cocaine Screen Negative (Negative) U Cannabinoids Screen Positive A (Negative) Ethyl Alcohol < 10 (<10) mg/dL Influenza A (RT-PCR) Negative (Negative) Influenza B (RT-PCR) Negative (Negative) RSV (RT-PCR) Negative (Negative) SARS-CoV-2 RNA (RT-PCR) Negative (Negative) Discharge Plan Discharge Clinical Impression: Passive suicidal ideations Depression Qualifiers: Depression Type: unspecified Qualified Code(s): F32.A - Depression, unspecified Patient Disposition: Home Condition: Stable Instructions: Antibiotic Form, Depression (ED), Help Prevent Suicide (ED) Additional Instructions: Follow safety plan and utilize resources given to by crisis team. Return to the ED immediately if you experience worsening or severe depression, thoughts of wanting to harm herself or anyone else, not feeling safe at home, or any other symptoms of concern. Patient Language: Macedonian Prescriptions: No Action hydroxyzine HCl 25 mg tablet 25 mg PO TID PRN (Reason: anxiety) Qty: 30 0RF Follow-up/Referrals: UNKNOWN,DOCTOR [Primary Care Provider] - Stand Alone Forms: Work/School Release IP Time of Disposition: 20:34
--- OUTSIDE RECORDS SUMMARY | 2025-01-16 18:40 | XMS_ITS | Clinical Summary ---
Author Organization [facility] Address [address] [place] [address] Care Team Providers Care Primary Special Educator Name Role Phone Ramiro Sam MD Primary Care Provider Unavailab le Source Comments [facility],non-owned Affiliates and Associated Physician Practices is amultiple site organization consisting of ambulatory clinics and hospital sitesin [place], [place], [place] and [place]. This disclosure is being madepursuant to the Care Everywhere program and may not contain all information available regarding this patient. 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 Gender Identity Not on file Sexual Orientation Not on file Last Filed Vital Signs Vital Sign Reading Time Taken Comments Blood Pressure - - Pulse - - Temperature - - Respiratory Rate - - Oxygen Saturation - - Inhaled Oxygen Concentration - - Weight 52.7 kg (116 lb 1.3 oz) 10/23/2014 8:54 A M MORTGAGE CONSULTANT Height 167 cm (5' 5.75) 10/23/2014 8:54 AM MORTGAGE CONSULTANT Body Mass Index 18.88 10/23/2014 8:54 AM MORTGAGE CONSULTANT Plan of Treatment Health Maintenance Due Date [...] patient's age to complete this topic Insurance [facility] Care Teams Primary Special Educator Relationship Specialty Start Date End Date Ramiro Sam MD PCP - General Pediatrics 09/25/14
== END 2025-01-16 21:04 | disposition home or self-care (01) ==
PROVIDERS: Physician Assistant; Emergency Provider Physician Assistant
DX: F32.A Depression, unspecified (principal); R45.851 Suicidal ideations; Z11.52 Encounter for screening for COVID-19
CPT/HCPCS: 36415; 80053; 80143; 80179; 80307; 81001; 82077; 84443; 85025; 87637; 99284